=== PATIENT | female | born 1940 | race Caucasian/White ===

== ENCOUNTER → 2023-09-13 10:05 | Outpatient (CLI) | payer MEDICARE, OTHER, SELFPAY ==
--- NOTE | 2023-09-13 10:07 | DI.ECHO.S_ITS ---
[facility] : : [address] : : [place] : : [id number] : : Phone: [phone] Echocardiogram Report + + :Name: EVERETT ELMORE Study Date: 09/13/2023 Height: 66 in : :[facility] ReadingLocation: Weight: 181 lb : : Gender: Female BSA: 1.9 m2 : :: 1940 Age: 83 yrs BP: 144/69 mmHg: :Reason For Study: Tricuspid Valve - Regurgitation : : Performed By: Celeste Abdul : :Referring: FRANTZ CHO : + + Interpretation Summary 1. The left ventricular contractility is normal. Estimated ejection fraction is greater than 60% with no segmental wall motion abnormalities. Grade 1 diastolic dysfunction. No LVH. 2. The right ventricular contractility is normal. 3. All cardiac chambers are of normal size. 4. There is moderate tricuspid regurgitation. Estimated pulmonary systolic artery pressure is 36 mmHg. 5. Mild aortic valvular sclerosis without stenosis nor insufficiency. 6. No obvious intracardiac shunts. 7. No obvious intracardiac masses nor thrombi. 8. No hemodynamically significant pericardial effusion. 9. No echocardiographic evidence of elevated right-sided filling pressures. Conclusion: Normal biventricular systolic function with moderate tricuspid regurgitation. Procedure: A two-dimensional transthoracic echocardiogram with color flow and Doppler was performed. The study quality was technically adequate. There is no prior echocardiogram noted for this patient. The heart rate ranged between 60-63 bpm during the study. Left Ventricle: The left ventricle is normal in size and wall thickness. The ejection fraction is estimated to be 60-65%. Diastolic parameters suggest probable normal left ventricular diastolic function and normal filling pressures. Right Ventricle: The right ventricle grossly appears normal in size with probable normal systolic function. Atria: The left atrial size is normal. Right atrial size is normal. The interatrial septum grossly appears intact with no obvious evidence for an atrial septal defect. Mitral Valve: The mitral valve is normal in structure and function. There is trace mitral regurgitation. Aortic Valve: The aortic valve is trileaflet. The aortic valve opens well. The aortic valve is mildly calcified. No aortic regurgitation is present. Tricuspid Valve: The tricuspid valve leaflets are thin and pliable. There is moderate tricuspid regurgitation. The right ventricular systolic pressure is estimated to be at least 36 mmHg based on an estimated right atrial pressure of 3 mm Hg. Pulmonic Valve: The pulmonic valve is not well seen, but is grossly normal. There is no pulmonic valvular regurgitation. Great Vessels: The aortic root is normal size. The ascending aorta is normal in size. The aortic arch is normal in size. The IVC is dilated (diameter is greater than 2.1 cm) yet it collapses greater than 50% with a sniff. This suggests a right atrial pressure of 8 mm Hg. Pericardium/ Pleura There is no pericardial effusion. There is no pleural effusion. MMode/2D Measurements & Calculations LVIDd: 4.8 cm LVOT diam: 1.8 cm LVIDs: 3.1 cm Ao root diam: 2.8 cm FS: 35.6 % asc Aorta Diam: 3.4 cm EPSS: 0.54 cm Ao Arch Diam (Prox Trans): 2.9 cm IVSd: 0.99 cm LVPWd: 0.90 cm LV connolly. diameter/BSA (cm/m^2): 2.5 LV sys. diameter/BSA (cm/m^2): 1.6 LA A2 area: 18.4 cm2 RA long axis: 5.9 cm LA A4 area: 20.0 cm2 RA area: 20.8 cm2 LA length (vol): 5.3 cm RA vol: 63.0 ml LA vol: 58.4 ml RA : 32.9 ml/m2 LA vol index: 30.5 ml/m2 IVC diam: 2.2 cm TAPSE: 2.4 cm Doppler Measurements & Calculations Ao V2 max: 157.1 cm/sec LVOT Max Rikki: 93.3 cm/sec Ao V2 mean: 107.6 cm/sec LV V1 max P.5 mmHg Ao max P.9 mmHg LV V1 VTI: 23.1 cm Ao mean P.3 mmHg WARNER(I,D): 1.5 cm2 Ao V2 VTI: 37.8 cm WARNER(V,D): 1.5 cm2 sev ratio: 0.61 WARNER indexed to BSA (cm^2/m^2): 0.79 MV E max rikki: 80.4 cm/sec TR max rikki: 284.8 cm/sec MV A max rikki: 101.5 cm/sec TR max P.5 mmHg MV E/A: 0.79 PA V2 max: 83.4 cm/sec Med Peak E' Rikki: 6.1 cm/sec PA V2 mean: 56.2 cm/sec E/E' med: 13.2 PA mean P.4 mmHg Lat Peak E' Rikki: 7.1 cm/sec PA pr(Accel): 3.6 mmHg E/E' lat: 11.3 E/e' average: 12.2 MV dec time: 0.22 sec SV(LVOT): 57.3 ml Reading Physician:
== END ==
PROVIDERS: PCP Physician Assistant; Referring Provider Internal Medicine; Visit Provider Internal Medicine
DX: I08.2 Rheumatic disorders of both aortic and tricuspid valves (principal)
CPT/HCPCS: 93306

== ENCOUNTER 2024-04-22 08:16 | Day surgery (SDC) | payer MEDICARE, OTHER, SELFPAY ==
[2024-04-14 07:42] VITALS: BMI 27.4
[2024-04-22] VITALS (8 sets, daily range): BP systolic 100–151; BP diastolic 49–77; PULSE 52–62; RESP 10–14; TEMP 36.1–36.4; O2SAT 92–100; BMI 27.4
--- NOTE | 2024-04-22 09:05 | P.HP_ITS ---
History of Present Illness History of Present Illness Date Patient Seen: 04/22/24 Time Patient Seen: 09:05 Chief complaint: SDC Narrative: Angeline is an 83-year-old woman with a right inguinal hernia. See the office note from March for details. [facility] Medical History Wears glasses Anxiety Vertigo Hearing loss (~2017) Cardiac arrhythmia (~1999) Cervical cancer Surgical History Anesthesia History of colonoscopy Social History marital status: unknown household members: spouse and none lives independently: Yes occupational status: previously employed Smoking Status: Never smoker alcohol intake: former substance use type: does not use Meds Home Medications and Allergies Home Medications Medication Instructions Recorded Confirmed Type atorvastatin 40 mg tablet 40 mg PO DAILY 09/20/22 04/22/24 History carvedilol 6.25 mg tablet 6.25 mg PO BID 09/20/22 04/22/24 History cholecalciferol (vitamin D3) 25 25 mcg PO DAILY 09/20/22 04/22/24 History mcg (1,000 unit) capsule vit C 250 mg-vit E 200 unit-zinc 1 cap PO DAILY 09/20/22 04/22/24 History ox 12.5 [id number] capsule (ICaps AREDS2) Allergies Allergy/AdvReac Type Severity Reaction Status Date / Time No Known Drug Allergies Allergy Verified 04/22/24 08:38 Exam Const General: healthy appearing Resp Effort & Inspection: normal respiratory effort Assessment & Plan Assessment and plan (1) Right inguinal hernia: Status: Acute Plan Laparoscopic right inguinal hernia repair with mesh Time-Based Coding :: [TOTAL MINUTES] spent with patient and on the chart (including review of chart, obtaining history, exam, reviewing outside data, placing orders, documenting exam and treatment plan, and counseling patient) on [DATE]. PROFEE Operating Room Surgical Technologist Document charge(s): No
[2024-04-22] MEDS: LACTATED RINGERS 1,000 ML 42 ML IV (09:17)
[2024-04-22] MEDS: FAMOTIDINE 20 MG/2 ML VIAL IV (09:18)
[2024-04-22] MEDS: ACETAMINOPHEN 325 MG TABLET 975 MG PO (09:18)
[2024-04-22] MEDS: CEFAZOLIN 2 GM/100 ML PREMIX 100 ML IV (10:00)
--- NOTE | 2024-04-22 10:14 | SUR.OPER ---
Supine on pink padded OR bed, head on pillow, arms padded and tucked at sides, legs uncrossed, safety belt at thigh, tape over blanket over lower legs .
[2024-04-22] MEDS: BUPIVACAINE 0.5% W/ EPI (PF) 30 ML VIAL INJ (10:24)
--- NOTE | 2024-04-22 10:57 | SUR.OPER ---
Per , patient to have bilateral inguinal hernia surgery.
--- NOTE | 2024-04-22 11:26 | PM.OP.1 ---
Operative Date/Time/Diagnoses Date of procedure: 04/22/24 Time of procedure: 11: Pre-op diagnosis: Right inguinal hernia Post-op diagnosis: other (Bilateral direct inguinal herniae) Procedure & Clinicians Procedure: Laparoscopic bilateral inguinal hernia repair with mesh Same procedure as scheduled: Yes Surgeon: Darwin Sahni Control Panel Builder: Toñito Contreras Anesthesia Type: General Operative Notes Procedure in detail: Surgeon: Darwin Sahni MD The patient was given preoperative antibiotics. The patient was brought to the operating room, placed on the table in the supine position with the arms tucked and general anesthesia was induced. The abdomen was prepped and draped in the usual fashion. A time-out was performed. A 1 cm supraumbilical incision was created and dissection was carried down to the fascia. The fascia was scored transversely with cautery. A Peon clamp was used to winter the peritoneum. The Misty port was placed and the abdomen was insufflated to 15 mmHg. The camera was inserted, there was no evidence of any injury from the entry. 5 mm ports were placed under direct vision in the mid left and mid right abdomen. The patient was positioned in steep Trendelenburg. It appeared she had bilateral direct defects. We started on the right side. We created a right peritoneal flap. The peritoneum was dissected off the round ligament. A large right Bard mesh was brought in and placed over the defect with the medial edge against Bennett's ligament. We then closed the peritoneal flap with a running 3-0 barbed suture. Next we turned our attention to the left side. We took down some thin adhesions of the colon to the peritoneum of the left myopectineal region. The peritoneum was dissected off the left round ligament. A large left Bard mesh was brought in and placed over the defect with the medial edge against Bennett's ligament. We then closed the peritoneal flap with a running 3-0 barbed suture. We took one last look around the abdomen and saw no other abnormalities. The suture was removed and accounted for. The 5 mm ports were removed under direct vision. The abdomen was desufflated. The Misty port was removed. Additional local was injected into the fascia and the fascial incision was closed with 2 interrupted 0 Vicryl sutures. The skin incisions were closed with 4 Monocryl, Steri-Strips and Band-Aids. EBL: 10 mL Toñito Renco PA provided assistance with exposure, retraction and closure of incisions. Post-operative Condition: stable Disposition: PACU
[2024-04-22] MEDS: KETOROLAC 30 MG/ML VIAL 15 MG IV (11:56)
== END 2024-04-22 13:00 | disposition home or self-care (01) ==
PROVIDERS: PCP Physician Assistant; Referring Provider Surgery; Visit Provider Surgery
PROC: 0YQ64ZZ Repair Left Inguinal Region, Percutaneous Endoscopic Approach (ICD-10-PCS; CPT 49650; principal; 2024-04-22 09:45)
DX: K40.20 Bilateral inguinal hernia, without obstruction or gangrene, not specified as recurrent (principal); N73.6 Female pelvic peritoneal adhesions (postinfective)
CPT/HCPCS: 49650; C1781; J0690; J1100; J1885; J2405; J2704; J3010; J3490

== ENCOUNTER → 2024-12-10 12:15 | Outpatient (CLI) | payer MEDICARE, OTHER, SELFPAY ==
--- NOTE | 2024-12-10 12:16 | DI.ECHO.S_ITS ---
[facility]+ [facility] : : [address] : : [place] : : [id number] : : Phone: [phone] Echocardiogram Report + + :Name: EVERETT ELMORE Study Date: 12/10/2024 Height: 65 in : :[facility] ReadingLocation: Weight: 165 lb : : Gender: Female BSA: 1.8 m2 : :: 1940 Age: 84 yrs BP: 134/76 mmHg: :Reason For Study: Nonrheumatic tricuspid valve insufficiency : :Ordering Physician: FRANTZ CHO Performed By: Nikolas Morgan : :Referring: FRANTZ CHO : + + Interpretation Summary - The left ventricular contractility is normal. Estimated ejection fraction is greater than 65% with no segmental wall motion abnormalities. No LVH. Indeterminate diastolic function. - The right ventricular contractility is normal. - All cardiac chambers are of normal size. - Mild to moderate tricuspid regurgitation with estimated pulmonary systolic artery pressures of 36 mmHg. - No obvious intracardiac shunts. - No obvious intracardiac masses nor thrombi. - No hemodynamically significant pericardial effusion. - Low right-sided filling pressures. Conclusion: Normal biventricular systolic function with mild to moderate tricuspid regurgitation and normal chamber sizes. When compared with previous echocardiogram, there does appear to be a slight decrease in the degree of tricuspid regurgitation. Procedure: A two-dimensional transthoracic echocardiogram with color flow and Doppler was performed. The study quality was technically adequate. Comparison is made with the echocardiogram of 09/13/2023. The patient was in normal sinus rhythm during the exam. Left Ventricle: The left ventricle is normal in size and wall thickness. Left ventricular systolic function is normal. The ejection fraction is estimated to be 65-70%. There are no focal wall motion abnormalities. Diastolic function is indeterminate. Right Ventricle: The right ventricle is normal in size and function. Atria: The left atrial size is normal. Right atrial size is normal. There is no Doppler evidence for an interatrial shunt. Mitral Valve: The mitral valve leaflets appear to open well. There is mild mitral annular calcification. There is no mitral valve stenosis. There is trace mitral regurgitation. Aortic Valve: The aortic valve is trileaflet. The aortic valve opens well. There is no aortic valve stenosis. There is trace aortic regurgitation. Tricuspid Valve: The tricuspid valve leaflets are thin and pliable. There is mild to moderate tricuspid regurgitation. The right ventricular systolic pressure is estimated to be at least 36 mmHg based on an estimated right atrial pressure of 3 mm Hg. Pulmonic Valve: The pulmonic valve is not well seen, but is grossly normal. There is trace pulmonic regurgitation. Great Vessels: The aortic root is normal size. The ascending aorta is normal in size. The aortic arch could not be visualized. The pulmonary artery is normal size. The IVC is of normal diameter and collapses greater than 50% with a sniff. This suggests a low right atrial pressure of 3 mm Hg. Pericardium/ Pleura There is no pericardial effusion. MMode/2D Measurements & Calculations LVIDd: 4.6 cm LVOT diam: 1.9 cm LVIDs: 2.7 cm Ao root diam: 2.8 cm FS: 40.5 % asc Aorta Diam: 3.6 cm IVSd: 0.84 cm LVPWd: 0.82 cm LV connolly. diameter/BSA (cm/m^2): 2.5 LV sys. diameter/BSA (cm/m^2): 1.5 LA A2 area: 15.6 cm2 IVC diam: 2.1 cm LA A4 area: 20.0 cm2 LA length (vol): 5.8 cm LA vol: 46.1 ml LA vol index: 25.3 ml/m2 RVD1 (basal): 3.2 cm RVD2 (mid): 2.6 cm TAPSE: 2.5 cm Doppler Measurements & Calculations Ao V2 max: 165.8 cm/sec LVOT Max Rikki: 123.6 cm/sec Ao V2 mean: 110.9 cm/sec LV V1 max P.1 mmHg Ao max P.0 mmHg LV V1 VTI: 26.7 cm Ao mean P.7 mmHg WARNER(I,D): 2.3 cm2 Ao V2 VTI: 32.3 cm WARNER(V,D): 2.0 cm2 sev ratio: 0.83 WARNER indexed to BSA (cm^2/m^2): 1.2 MV E max rikki: 78.8 cm/sec TR max rikki: 288.1 cm/sec MV A max rikki: 99.9 cm/sec TR max P.3 mmHg MV E/A: 0.79 PA V2 max: 107.0 cm/sec Med Peak E' Rikki: 5.8 cm/sec PA V2 mean: 77.7 cm/sec E/E' med: 13.6 PA mean P.6 mmHg Lat Peak E' Rikki: 6.3 cm/sec PA pr(Accel): 8.4 mmHg E/E' lat: 12.4 E/e' average: 13.0 MV dec time: 0.21 sec SV(LVOT): 73.1 ml Qp/Qs (V,Ao): 1.0/4.8 Qp/Qs (V,LVOT): 1.0/1.6 Reading Physician:JR
== END ==
LOC: ECHO 12:16
PROVIDERS: PCP Physician Assistant; Referring Provider Internal Medicine; Visit Provider Internal Medicine
DX: I36.1 Nonrheumatic tricuspid (valve) insufficiency (principal); I34.81 Nonrheumatic mitral (valve) annulus calcification
CPT/HCPCS: 93306